=== PATIENT | male | born 1965 | race Caucasian/White ===

== ENCOUNTER 2021-01-23 09:55 | Emergency (ER) | payer BC ==
[2021-01-23] MEDS ORDERED: Iopamidol-370 76% 500 ML 1 ML ONE (09:56)
[2021-01-23] MEDS ORDERED: Ondansetron PF 4 MG/2 ML Vial ONE (10:27)
[2021-01-23] MEDS ORDERED: Fentanyl 100 MCG/2 ML VIAL ONE ×2 (10:27→10:54)
[2021-01-23 10:48] LABS: #Basophils 0.1 thou/uL (0.0-0.2); #Lymphocytes 1.7 thou/uL (1.20-3.40); #Monocytes 0.8 thou/uL (0.11-0.59); #Neutrophils 9.2 thou/uL (1.40-6.50); %Basophils 0.6 % (0.0-1.0); %Eosinophils 0.2 % (0.0-10.0); %Lymphocytes 14.1 % (21.0-51.0); %Monocytes 6.5 % (0.0-10.0); %Neutrophils 78.5 % (42.0-75.0); Hemoglobin 16.2 g/dL (14.0-18.0); Mean Corpuscular HGB CONC 34.5 g/dL (32.0-36.0); Mean Corpuscular Hemoglobin 32.5 pg (27.0-31.0); Mean Corpuscular Volume 94.2 fL (78.0-98.0); Mean Platelet Volume 7.7 fL (7.4-10.4); Platelet Count 245 thou/uL (130-400); RBC Distribution Width 11.7 % (11.5-14.5); White Blood Cell (WBC) Count 11.7 thou/uL (4.8-10.8)
[2021-01-23] MEDS ORDERED: Pantoprazole 40 MG VIAL ONE (10:54)
[2021-01-23 11:05] LABS: ALT (SGPT) 25 U/L (8-55); AST (SGOT) 24 U/L (5-34); Albumin 4.4 g/dL (3.5-5.0); Alkaline Phosphatase 79 U/L (40-110); Anion Gap 17 mmol/L (10-20); BUN (Urea Nitrogen) 25 mg/dL (8.4-25.7); Bilirubin, Total 0.6 mg/dL (0.2-1.2); CK (CPK) 255 U/L (30-200); Calc. Creatinine Clearance 0 mL/min (70-130); Calcium 9.4 mg/dL (7.8-10.44); Carbon Dioxide 22 mmol/L (22-29); Chloride 100 mmol/L (98-107); Globulin 3.6 g/dL (2.4-3.5); Glucose 124 mg/dL (70-105); Lipase 18 U/L (8-78); Potassium 3.5 mmol/L (3.5-5.1); Sodium 135 mmol/L (136-145)
[2021-01-23 11:50] LABS: Bilirubin Negative (Negative); Blood, Urine Negative (Negative); Clarity Clear (Clear); Glucose, Urine (Dipstick) 30 mg/dL (Negative); Ketone, Urine Negative (Negative); Leukocyte Negative Leu/uL (Negative); Nitrite Negative (Negative); Protein, Urine (Dipstick) 10 mg/dL (Neg-Trace); Specific Gravity, Urine 1.026 (1.002-1.036); Urobilinogen Normal mg/dL (Less than 2)
[2021-01-23] MEDS ORDERED: Lidocaine Viscous Sol 2% 15 ml UD Cup ONE (12:14)
[2021-01-23] MEDS ORDERED: Ketorolac Tromethamine 30 MG/ML VIAL ONE (12:14)
[2021-01-23] MEDS ORDERED: Mag-Al 1200 mg/1200 mg/30 ML UDCUP ONE (12:14)
[2021-01-23] MEDS ORDERED: HYDROmorphone 0.5 MG/0.5 ML SYRINGE ONE (13:00)
== END 2021-01-23 13:16 | disposition home or self-care (01) ==
LOC: ERS 09:55
DX: R10.33 Periumbilical pain (principal); I10 Essential (primary) hypertension; Z79.899 Other long term (current) drug therapy
CPT/HCPCS: 36415; 74177; 80053; 81003; 82550; 83690; 84484; 85025; 93005; 96372; 96374; 96375; C9113; J0500; J1170; J1885; J2405; J3010; Q9967